=== PATIENT | female | born 1970 | race Hispanic/Latino ===

== ENCOUNTER → 2024-02-21 | Day surgery (SDC) | payer OTHER ==
[~2024-02-21] MED LIST: B12 ACTIVE1000 MCG PO; BIOTIN 800 MCG1 EACH PO; FENTANYL CITRATE/PF 100MCG/2 ML INJ ONE; FISH OIL 1,0001 EAC7; LIDOCAINE HCL 2% LOCAL INJ 5 ML SDV VIAL INJ ONE; MAGNESIUM OXID400 MG PO; PROPOFOL IV EMULSION 10 MG/ML 20 ML VIAL ONE; PROPOFOL IV EMULSION 10 MG/ML 50 ML VIAL IV ONE; VITAMIN C1000 MG PO; VITAMIN E400 UNI1 PO; VITAMIN K100 MCG PO
[2024-02-21] MEDS: LACTATED RINGER'S 1,000 ML ONE (12:11)
[2024-02-21 14:45] VITALS: BP 103/88; PULSE 69; RESP 18; TEMP 97.7; O2SAT 99
== END | disposition home or self-care (01) ==
LOC: OR 11:48
PROVIDERS: ATTEND Internal Medicine Gastroenterology
DX: Z12.11 Encounter for screening for malignant neoplasm of colon (principal); K29.70 Gastritis, unspecified, without bleeding; K29.80 Duodenitis without bleeding; K20.90 Esophagitis, unspecified without bleeding; K21.9 Gastro-esophageal reflux disease without esophagitis; Z71.3 Dietary counseling and surveillance; F32.A Depression, unspecified; Z01.810 Encounter for preprocedural cardiovascular examination; Z68.34 Body mass index [BMI] 34.0-34.9, adult
CPT/HCPCS: 43239; 45378; 93005; C9113; J2001; J2704 ×2; J3010; J7121